=== PATIENT | male | born 1945 | race Caucasian/White ===

== ENCOUNTER 2016-05-18 10:50 | Emergency (ER) | payer OTHER ==
[~2016-05-18] VITALS: Ht 175.3 cm; Wt 106.6 kg
--- NOTE | 2016-05-18 11:29 | PHYS DOC ---
Past Medical History Past Medical History: High Cholesterol, Hypothyroid Additional Past Medical Histor: Pituitary tumor Past Surgical History: No Surgical History Alcohol Use: None Drug Use: None Adult General Chief Complaint Chief Complaint: HYPERTENSION HPI HPI Patient is a 70 year old male who presents with for evaluation of slight head pressure and ringing in his ears over the past few days. He donated blood approximately 2 weeks ago and was noted to have systolic blood pressure in the 170s. He has been checking his blood pressure since that time and has an elevated blood pressures. He has been trying to look for any symptoms of elevated blood pressure, and has started having slight ringing in his ears and slight head pressure. He has not yet seen his primary care doctor for this. He denies headache, vision changes, dizziness, chest pain, dyspnea, cough, leg pain or swelling, orthopnea, fatigue. Review of Systems Review of Systems Constitutional: Denies fever or chills [] Eyes: Denies change in visual acuity, redness, or eye pain [] HENT: Denies nasal congestion or sore throat [] Respiratory: Denies cough or shortness of breath [] Cardiovascular: No additional information not addressed in HPI [] GI: Denies abdominal pain, nausea, vomiting, bloody stools or diarrhea [] : Denies dysuria or hematuria [] Musculoskeletal: Denies back pain or joint pain [] Integument: Denies rash or skin lesions [] Neurologic: Denies headache, focal weakness or sensory changes [] Endocrine: Denies polyuria or polydipsia [] Allergies Allergies Allergies Coded Allergies Type Severity Reaction Last Updated Verified Sulfa (Sulfonamide Antibiotics) Allergy Intermediate 05/18/16 Yes prednisone Adverse Reaction Mild 05/18/16 Yes Physical Exam Physical Exam Constitutional: Well developed, well nourished, no acute distress, non-toxic appearance. [] HENT: Normocephalic, atraumatic, bilateral TMs normal, oropharynx moist, no oral exudates, nose normal. [] Eyes: PERRLA, EOMI, conjunctiva normal, no discharge. [] Neck: Normal range of motion, supple. [] Cardiovascular:Heart rate regular rhythm [] Lungs & Thorax: Bilateral breath sounds clear to auscultation [] Abdomen: Bowel sounds normal, soft, no tenderness. [] Skin: Warm, dry, no erythema, no rash. [] Back: Normal range of motion. [] Extremities: ROM intact, no edema. [] Neurologic: Alert and oriented X 3, normal motor function, normal sensory function, no focal deficits noted, cranial nerves II through XII intact. [] Psychologic: Affect normal, judgement normal, mood normal. [] Current Patient Data Vital Signs Vital Signs Date Time Temp Pulse Resp B/P Pulse Ox O2 Delivery O2 Flow Rate FiO2 05/18/16 11:30 91 225/99 Room Air 05/18/16 10:55 97.9 15 99 97.9 Lab Values Laboratory Tests Test 05/18/16 11:30 Sodium Level 141mmol/L (136-145) Potassium Level 4.2mmol/L (3.5-5.1) Chloride Level 104mmol/L (98-107) Carbon Dioxide Level 27mmol/L (21-32) Anion Gap 10 (6-14) Blood Urea Nitrogen 14mg/dL (8-26) Creatinine 1.0mg/dL (0.7-1.3) Estimated GFR (Cockcroft-Gault) 73.9 Glucose Level 109mg/dL (70-99) H Calcium Level 9.1mg/dL (8.5-10.1) Troponin I Quantitative < 0.017ng/mL (0.000-0.055) Laboratory Tests 05/18/16 11:30 EKG EKG EKG as interpreted by me as normal sinus rhythm, rate 78, no ST-T changes, P-R 164, QTc 536, PVC Radiology/Procedures Radiology/Procedures Chest xray as interpreted by me with no acute cardiopulmonary disease process Course & Med Decision Making Course & Med Decision Making Pertinent Labs and Imaging studies reviewed. (See chart for details) Workup is unremarkable. As he has a well-established recent pattern of hypertension, will start on antihypertensive. Discussed he should follow-up with his primary care doctor closely. Return precautions given. He understands and agrees with plan. Dragon Disclaimer Dragon Disclaimer This electronic medical record was generated, in whole or in part, using a voice recognition dictation system. Departure Departure Impression: Primary Impression: Asymptomatic hypertension Disposition: HOME, SELF-CARE Condition: STABLE Referrals: GRANT BARONE Jr, MD (PCP) Patient Instructions: Hypertension, [id number] Additional Instructions: Start taking lisinopril for high blood pressure. Follow-up with your primary care doctor within one week. Return for any concerns. Scripts Lisinopril 10 Mg Tablet1 Tab PO DAILY #30 TAB Ref 0 Prov:Danae PRADHAN MD 05/18/16 Danae PRADHAN MD May 18, 2016 11:29
--- NOTE | 2016-05-18 11:42 | EKG ---
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 PROLONGED QT Electronically Signed On 05-19-2016 14:12:40 PANEL COVERER by Dominick Perez
[2016-05-18 11:47] LABS: CALCIUM 9.1 mg/dL (8.5-10.1); GFR 73.9; POTASSIUM 4.2 mmol/L (3.5-5.1)
--- NOTE | 2016-05-18 11:50 | RAD ---
Examination: 2 views of the chest History: History of hypertension Comparison: 03/12/2007 Findings: Low lung volumes and technique accentuate heart size and pulmonary vascularity. There is no acute infiltrate or visualized pneumothorax identified. Impression: No acute cardiopulmonary findings.
[2016-05-18] MEDS ORDERED: LISI10TA2 PO (12:11)
[2016-05-18 12:27] VITALS: BP 193/81
== END 2016-05-18 12:40 | disposition home or self-care (01) ==
LOC: ER 10:50
DX: I10 Essential (primary) hypertension (principal); E03.9 Hypothyroidism, unspecified; E78.00 Pure hypercholesterolemia, unspecified; Z88.2 Allergy status to sulfonamides; Z88.8 Allergy status to other drugs, medicaments and biological substances
CPT/HCPCS: 36415; 71020; 80048; 84484; 93005; 99285-25

== ENCOUNTER → 2017-01-28 | Outpatient (CLI) | payer OTHER ==
[~2017-01-28] MED LIST: CABE0.5T PO; CYCL10TA2 PO; HYDR-2762 PO; LEVO50TA5 PO; LISI10TA2 PO; PRAV40TA2 PO
--- NOTE | 2017-01-28 23:23 | PAIN ---
DATE OF SERVICE: 01/28/2017 INITIAL CONSULTATION FOR PAIN CLINIC CHIEF COMPLAINT: Low back and bilateral lower extremity pain. HISTORY OF PRESENT ILLNESS: This is a 71-year-old male who presents with history of pain in the low back since about 08/28/2016. The patient reports this started gradually not a result of any specific injury or accident he is aware of, the pain getting increasingly worse with time. He has had some chiropractic treatment as well as doing some physical therapy on his own at home with stretching and strengthening exercises, which has helped, but only by about 25%. The patient reports that the pain begins in his low back, bilateral lower extremities in the lateral anterior aspect of the thighs, medial thigh, anterior thigh into the medial lower leg, also in the posterior lower leg as well across the low back to a moderate extent, mostly in the legs; however, the patient reports that it is tingling and numb in the legs, especially in the left thigh with sharp pain that is cramping at times, aching, dull and shooting. The patient reports it awakens him from sleep about twice at night. He can usually reposition and get back to sleep; however. It does not affect bowel or bladder control, but does affect his ability to walk. He can only walk for about 10-15 minutes and has to sit down. When he sits down, the pain subsides significantly, but after about 5-10 minutes and then it starts again once he begins walking for the same duration. The patient reports no loss of motor function, but significant fatigability and feels like his legs are becoming numb and tingly when he is walking, which has caused some loss of balance and stumbling, but no overt falls at this time. The patient rates his disability rate from 0-10, 10 being the worst, is 8 with family and home responsibility and sexual behavior, 6 with recreation, 7 with social activity, 5 with self care and 4 with life support activities. The patient did have an MRI scan of the lumbar spine showing moderately severe disk space narrowing at L5-S1 with diffuse disk bulging of both neural foramina, L4-L5 shows severe diffuse posterior disk protrusion extruding into both neural foramina contributing to severe central spinal and bilateral foraminal stenosis, L3-L4 shows moderate diffuse disk bulging in both neural foramina as well. The patient had significant treatments with therapy and chiropractic since October of this year, which is ongoing again with only minimal decrease in pain long-term. PAST MEDICAL HISTORY: Significant for hearing loss, hypertension, gastroesophageal reflux, hyperlipidemia, dizziness, headaches and arthritis. PREVIOUS SURGERY: Include bilateral cataract extraction, vasectomy and also has pituitary over production of prolactin. CURRENT MEDICATIONS: Include lisinopril, pravastatin, levothyroxine, cyclobenzaprine, hydrocodone and cabergoline. FAMILY HISTORY: The patient's family history is significant for no major medical problems or conditions that he is aware of. SOCIAL HISTORY: The patient does not smoke, does not drink alcohol, is and lives with his spouse. He is currently retired and lives locally in [facility]. REVIEW OF SYSTEMS: The patient's review of systems is positive for those items mentioned in the history of present illness. All systems reviewed and otherwise negative. It is complete, full and well documented on the patient's chart. PHYSICAL EXAMINATION: VITAL SIGNS: Today, the patient's blood pressure is 136/84, pulse is 79, respirations 16 and temperature 98.1 degrees Fahrenheit. Height is 5 feet 9 inches and weight is 241 pounds. GENERAL: The patient is awake, alert, oriented, appropriate and very pleasant demeanor. HEENT: Head shows normocephalic and atraumatic. Extraocular movements are intact and symmetrical. Oral cavity: Mucous membranes are moist and pink. Dentition is intact. NECK: Shows anterior throat supple without palpable lymphadenopathy noted. Swallow reflex is symmetrical. CHEST: Shows normal on inspection. Breath sounds are clear to auscultation bilaterally. HEART: Shows S1 and S2 clear. No murmurs are auscultated. ABDOMEN: Obese, soft, nontender and nondistended. No palpable organomegaly is noted. No rebound or guarding demonstrated. MUSCULOSKELETAL: Back shows spine grossly in the midline. Normal appearing thoracic kyphosis and lumbar lordotic curvature. Lumbar paraspinous muscle shows symmetrical on inspection with palpation shows some very mild tenderness in the lower lumbar distribution, but is symmetrical, no evidence of atrophy, hypertrophy, no trigger points, no radiation of pain, no tenderness over the sacrum or sacroiliac regions. The patient shows full rotational motion of the lumbar spine both laterally as well as extension and flexion without difficulty or pain reported. Lower extremities show deep tendon reflexes at 2+ in the patellar, 1+ tendo calcaneus tendons. Motor exam is strong with 5/5 dorsiflexion, extension, quadriceps and hamstring flexion and equal. Peripheral pulses are 1+ posterior tibial and dorsalis pedis pulses. No peripheral edema is noted. No clubbing and no cyanosis. Lower extremities are warm and dry to touch, equal in color and appearance. Straight leg raise is noted to be positive bilaterally at about 40 degrees, decreased with knee flexion. Gaenslen's and Agustín's maneuvers are negative bilaterally. The patient is able to stand, has no difficulty standing on his toes or loss of balance and walking with a slight shuffling gait, appears to favor the left lower extremity slightly more than the right with ambulation, but only moderately so, not using any assistive devices such as canes or walkers to ambulate. SKIN: Shows warm and dry. No peripheral edema. No bruises, lesions, rashes or scars noted. IMPRESSION: 1. This is a 71-year-old male with approximate 5-month history of low back and bilateral lower extremity pain radiating to the lower extremities in a significant radicular fashion following the L4-L5 dermatomal distribution. 2. MRI scan of the lumbar spine as noted. 3. Hypertension. 4. Arthritis. PLAN: Options were discussed with the patient including conservative medical management, physical therapy, interventional techniques and he would like to pursue with interventional techniques. We discussed a lumbar epidural steroid injection using description as well as anatomical models to describe the procedure. The patient would like to wait for preauthorization with his insurance provider. We will have him return to clinic in approximately one week with approval for a lumbar epidural steroid injection at that time. MITESH MAIER MD DR: EDWARD/vijay JOB#: [id number] / [id number]
== END | disposition home or self-care (01) ==
LOC: PNCL 08:03
PROVIDERS: ATTEND Anesthesiology
DX: M48.062 Spinal stenosis, lumbar region with neurogenic claudication (principal); M46.86 Other specified inflammatory spondylopathies, lumbar region; I10 Essential (primary) hypertension; K21.9 Gastro-esophageal reflux disease without esophagitis; E78.5 Hyperlipidemia, unspecified
CPT/HCPCS: G0463

== ENCOUNTER → 2017-02-02 | Outpatient (CLI) | payer OTHER ==
[~2017-02-02] MED LIST changes: +IOHEXOL 180 MG/ML 10 ML VIAL. ONE; +methylPREDNISolone ACETATE 40 MG/ML VIAL. ONE; +methylPREDNISolone ACETATE 80 MG/ML VIAL. ONE
--- NOTE | 2017-02-02 10:22 | PN ---
DATE: 02/02/2017 PROGRESS NOTE FOR PAIN CLINIC DIAGNOSES: Lumbar radiculopathy with lumbar spinal stenosis and lumbar herniated disk. HISTORY OF PRESENT ILLNESS: The patient is a 71-year-old male who returns for followup status post initial evaluation last week with preauthorization for epidural steroid injection today. He is still with significant pain noticed in the low back and bilateral lower extremities, mostly in the posterior gluteus, posterior thigh and lateral thigh into the lower legs bilaterally. The patient reports it a 10 on a scale 10, it is worse at 8 on average and a 7 on a scale of 10 at least; it is 7 today. The patient with aching, sharp, cramping, shooting pain in the low back and bilateral lower extremities as noted. The patient reports no new motor or sensory deficits, no new bowel or bladder incontinence or other complaints. Worse with walking, standing or changing positions and better with sitting or lying down. The patient reports it has been waking him from sleep, but only occasionally; he usually sleeps about 8 hours a night. If he lies on his left side, though, it can become more painful, cramping and aching sensation and will awaken him. The patient is able to reposition and get back to sleep most times. PHYSICAL EXAMINATION: VITAL SIGNS: Today, the patient's blood pressure is 158/75, pulse 88, respirations are 18 and temperature is 97.5 degrees Fahrenheit. Height is 5 feet 9 inches, weight is 240 pounds. GENERAL: The patient is awake, alert, oriented, appropriate, very pleasant demeanor. HEENT: Head shows normocephalic, atraumatic. Extraocular movements intact and symmetrical. Oral cavity, mucous membranes moist and pink. Dentition is intact. NECK: Shows anterior throat supple, without palpable lymphadenopathy noted. Swallow reflex symmetrical. CHEST: Shows normal with inspection. Breath sounds clear to auscultation bilaterally. HEART: Shows S1, S2 clear. No murmurs auscultated. ABDOMEN: Obese, soft, nontender and nondistended. No palpable organomegaly is noted. No rebound or guarding demonstrated. BACK: Shows spine grossly in the midline. Slight exaggeration of thoracic kyphosis. Normal lordotic lumbar curvature. Lumbar paraspinous muscle shows symmetrical on inspection. With palpation, it shows some moderate tenderness with palpation, but only diffusely bilaterally. SKIN: Shows some mottled discoloration from heating pad use, but no lesions, rashes, sores or scars. LOWER EXTREMITIES: Show deep tendon reflexes 2+ in the patellar, 1+ tendo calcaneus tendons. Motor exam is strong with 5/5 dorsiflexion, extension, quadriceps and hamstring flexion and symmetrical. Pulses are 1+ posterior tibial. No peripheral edema is noted. Options were discussed with the patient. The patient's old chart was reviewed as was his current medication regimen updated. Current review of systems updated today as well. We will proceed with a lumbar epidural steroid injection today with fluoroscopic guidance. Risks were again discussed including, but not limited to bleeding, infection, possibility of epidural hematoma, subsequent neurologic compromise, dural puncture, headaches, spinal cord and/or nerve damage, side effects of steroid medication and poor results regarding pain control. The patient understands and wished to proceed. The patient will return to the clinic in approximately 2 weeks for followup. He was counseled on return appointment, activity level and side effects to be aware of. DIAGNOSES: Lumbar radiculopathy with lumbar spinal stenosis and lumbar herniated disk. PROCEDURE: Lumbar epidural steroid injection in translaminar approach at the L5-S1 level using C-arm fluoroscopic guidance under sterile prep and drape using local anesthetic. MEDICATIONS INJECTED: A total of 120 mg Depo-Medrol plus 10 mL preservative-free normal saline and 2 mL of Isovue for contrast. CONDITION AT DISCHARGE: Stable. The patient tolerated the procedure well, had no complications. MITESH MAIER MD DR: EDWARD/vijay JOB#: [id number] / [id number]
== END | disposition home or self-care (01) ==
LOC: PNCL 08:03
PROVIDERS: ATTEND Anesthesiology
DX: M51.16 Intervertebral disc disorders with radiculopathy, lumbar region (principal); M48.061 Spinal stenosis, lumbar region without neurogenic claudication; Z88.8 Allergy status to other drugs, medicaments and biological substances; Z88.2 Allergy status to sulfonamides; I10 Essential (primary) hypertension; E03.9 Hypothyroidism, unspecified; E78.00 Pure hypercholesterolemia, unspecified
CPT/HCPCS: 62323; J1030; J1040

== ENCOUNTER → 2017-02-17 | Outpatient (CLI) | payer OTHER ==
[~2017-02-17] MED LIST changes: -IOHEXOL 180 MG/ML 10 ML VIAL. ONE; -methylPREDNISolone ACETATE 40 MG/ML VIAL. ONE; -methylPREDNISolone ACETATE 80 MG/ML VIAL. ONE
--- NOTE | 2017-02-17 09:33 | PAIN ---
DATE OF SERVICE: 02/17/2017 DIAGNOSES: Lumbar radiculopathy with lumbar herniated disk, lumbar spinal stenosis. HISTORY OF PRESENT ILLNESS: The patient is a 71-year-old male who returns for followup status post lumbar epidural steroid injection x 1 on 02/06/2017. The patient reports he did very well, about a 100% improvement after the first week, second week it was about a 75% improvement. The patient reports he has still about 75% improvement or so in the low back and bilateral lower extremities. The patient reports still significant pain across the low back, worse with standing, walking, changing positions, much better with sitting or lying down. He has been increasing his activity with greater ease and comfort, especially the first 2 weeks. This last few days it has been more noticeable with pain in the low back and bilateral lower extremities, radiating to posterior gluteus, posterior thighs, lateral thighs and anterior thigh and into the posterior calf. It is a cramping, aching, off and on now, it is not constant as it was before. The patient reports the pain is a 4 on a scale of 10 at its worst, 3 on average and 1 at its least, is a 3 today. The patient reports no new motor or sensory deficits, no new bowel or bladder changes. Again, sleeping well at night about 6-8 hours, does not awaken him from sleep. It is much better with sitting or lying down. When he goes to change positions, however, is when he notices the pain most significantly. The patient reports otherwise doing well. He is very pleased with the progress thus far. He continues to have good relief, but again reports the pain returning slowly in the L5-S1 dermatomal distribution in the bilateral lower extremities. PHYSICAL EXAMINATION: VITAL SIGNS: Blood pressure 138/79, pulse 77, respirations 18, temperature is 97.9 degrees Fahrenheit, height 5 feet 9 inches, weight is 240 pounds. GENERAL: The patient is awake, alert, oriented, appropriate, very pleasant demeanor. HEENT: Head shows normocephalic, atraumatic. Extraocular movements are intact and symmetrical. Oral cavity: Mucous membranes moist and pink. Dentition is intact. NECK: Shows anterior throat is supple without palpable lymphadenopathy noted. Swallow reflexes symmetrical. CHEST: Normal on inspection. Breath sounds are clear to auscultation bilaterally. HEART: S1, S2 clear. No murmurs auscultated. ABDOMEN: Soft, nontender, nondistended, no palpable organomegaly is noted. No rebound or guarding demonstrated. BACK: Shows spine grossly in the midline. Normal appearing thoracic kyphosis and some slight flattening of the lumbar lordotic curvature. No previous bruises, lesions, rash, or scars noted. Lumbar paraspinous musculature is symmetrical on inspection, on palpation shows some moderate tenderness bilaterally, but only diffusely in the lumbar distribution without trigger points, without radiation, good rotational motion in the lumbar distribution both laterally as well as extension, flexion without significant difficulty. EXTREMITIES: Lower extremities show deep tendon reflexes 2+ in patellar, 1+ tendo calcaneus tendon, equal. Motor examination is strong with 5/5 dorsiflexion and extension, quadriceps and hamstring flexion. Peripheral pulses are 1+ posterior tibial. No peripheral edema is noted. The patient still has slight positive straight leg raise at about 45 degrees bilaterally, but it is decreased and relieved with knee flexion. Gaenslen's and Agustín maneuvers are negative bilaterally as well. Options were discussed with the patient. The patient's old chart was reviewed as well as current medication regimen updated. Current review of systems updated today as well. We will proceed with a preauthorization for second lumbar epidural steroid injection. He did very well with the first injection, the pain returning now after about 2-1/2 weeks of pain in the bilateral lower extremities in a L5-S1 dermatomal distribution. The patient will return to clinic after preauthorization is made. He is encouraged to maintain activity, stretching and strengthening exercises he is doing and walking daily as tolerated. MITESH MAIER MD DR: EDWARD/vijay JOB#: [id number] / [id number]
== END | disposition home or self-care (01) ==
LOC: PNCL 08:14
PROVIDERS: ATTEND Anesthesiology
DX: M51.16 Intervertebral disc disorders with radiculopathy, lumbar region (principal); M48.061 Spinal stenosis, lumbar region without neurogenic claudication
CPT/HCPCS: G0463

== ENCOUNTER → 2017-03-05 | Outpatient (CLI) | payer OTHER ==
[~2017-03-05] MED LIST changes: +IOHEXOL 180 MG/ML 10 ML VIAL. ONE; +methylPREDNISolone ACETATE 40 MG/ML VIAL. ONE; +methylPREDNISolone ACETATE 80 MG/ML VIAL. ONE
--- NOTE | 2017-03-06 03:15 | PAIN ---
DATE OF SERVICE: 03/05/2017 PROGRESS NOTE FOR PAIN CLINIC DIAGNOSES: Lumbar radiculopathy with lumbar herniated disk and lumbar spinal stenosis. HISTORY OF PRESENT ILLNESS: The patient is a 71-year-old male who returns for followup status post lumbar epidural steroid injection x 1 with near 100% improvement for the first week and about 75% improvement after that. The patient reports it is still about 75% improved in his low back and bilateral lower extremities. The patient reports the pain is beginning to become more noticeable day by day, but still doing much better, aching, sharp, cramping pain, rates as a 4 on a scale of 10 at its worst, at its least and on average and is a 4 today. The patient reports no new motor or sensory deficits, no new bowel or bladder incontinence or other complaints. He is sleeping about 7-9 hours at night. It does not awaken him from sleep from his low back pain. He has some shoulder issues, which wake him up, but otherwise he does well sitting on his low back. He had been increasing his activities with greater ease and comfort. He is very pleased with his progress thus far. The patient reports no new changes or deficits. PHYSICAL EXAMINATION: VITAL SIGNS: The patient's blood pressure 166/87, pulse is 83, respirations 16, temperature 98.0 degrees Fahrenheit and weight is 242 pounds. GENERAL: The patient is awake, alert, oriented, appropriate, very pleasant demeanor. HEENT: Head shows normocephalic and atraumatic. Extraocular movements are intact, symmetrical. Oral cavity: Mucous membranes are moist and pink. Dentition is intact. NECK: Shows anterior throat is supple without palpable lymphadenopathy noted. Swallow reflex symmetrical. CHEST: Shows normal with inspection. Breath sounds are clear to auscultation bilaterally. HEART: Shows S1 and S2 clear. No murmurs auscultated. ABDOMEN: Soft, nontender, nondistended and obese. No palpable organomegaly is noted. No rebound or guarding demonstrated. MUSCULOSKELETAL: Back shows spine grossly in the midline. Normal appearing thoracic kyphosis, some minor flattening of the lumbar lordotic curvature. Lumbar paraspinous muscle shows symmetrical with inspection on palpation shows some moderate tenderness, but only diffusely without radiation. No tenderness over the sacrum or sacroiliac regions. The patient has full rotational motion of lumbar spine without difficulty or tenderness. Lower extremities show deep tendon reflexes at 2+ in the patellar, 1+ tendo calcaneus tendons. Motor exam is strong with 5/5 dorsiflexion, extension, quadriceps and hamstring flexion equal. Peripheral pulses are 1+ posterior tibial. No peripheral edema is noted bilaterally. Options were discussed with the patient. The patient's old chart was reviewed as was his current medication regimen updated. Current review of systems updated today as well. We will proceed with a second in a series of lumbar epidural steroid injection with fluoroscopic guidance. Risks were again discussed including, but not limited to bleeding, infection, possibility of epidural hematoma, subsequent neurologic compromise, dural puncture, headaches, spinal cord and/or nerve damage, side effects of steroid medication and poor results regarding pain control. The patient understands and wished to proceed. The patient will return to the clinic in approximately two weeks for followup, was counseled on return appointment, activity level and side effects to be aware of. DIAGNOSIS: Lumbar radiculopathy with lumbar herniated disk and lumbar spinal stenosis. PROCEDURE: Lumbar epidural steroid injection, translaminar approach at the L5-S1 level using C-arm fluoroscopic guidance under sterile prep and drape using local anesthetic. Medication injected a total of 120 mg of Depo-Medrol plus 10 mL of preservative free normal saline and 2 mL Isovue for contrast. CONDITION AT DISCHARGE: Stable. The patient tolerated the procedure well and had no complications. MITESH MAIER MD DR: EDWARD/vijay JOB#: [id number] / [id number]
== END | disposition home or self-care (01) ==
LOC: PNCL 13:42
PROVIDERS: ATTEND Anesthesiology
DX: M51.16 Intervertebral disc disorders with radiculopathy, lumbar region (principal); M48.061 Spinal stenosis, lumbar region without neurogenic claudication; Z88.1 Allergy status to other antibiotic agents; Z88.2 Allergy status to sulfonamides
CPT/HCPCS: 62323; J1030; J1040

== ENCOUNTER 2018-02-02 00:11 | Emergency (ER) | payer OTHER ==
[~2018-02-02] VITALS: Ht 172.7 cm; Wt 108.9 kg
[~2018-02-02 00:11] MED LIST changes: -IOHEXOL 180 MG/ML 10 ML VIAL. ONE; -methylPREDNISolone ACETATE 40 MG/ML VIAL. ONE; -methylPREDNISolone ACETATE 80 MG/ML VIAL. ONE
--- NOTE | 2018-02-02 00:31 | PHYS DOC ---
Past Medical History Past Medical History: High Cholesterol, Hypothyroid Additional Past Medical Histor: Pituitary tumor Past Surgical History: No Surgical History Alcohol Use: None Drug Use: None Adult General Chief Complaint Chief Complaint: LACERATION/AVULSION HPI HPI Patient is a 72 year old male who presents with right thumb laceration, patient accidentally cut himself with a vegetable slicer at 3 pm and has not been able to stop the bleeding. He is on aspirin 81mg. He is right handed Review of Systems Review of Systems Constitutional: Denies fever or chills [] Musculoskeletal: Denies back pain or joint pain [] Integument: Reports right thumb laceration Neurologic: Denies headache, focal weakness or sensory changes [] All other systems were reviewed and found to be within normal limits, except as documented in this note. Current Medications Current Medications Current Medications Medications (Trade) Dose Ordered Sig/Barak Start Time Stop Time Status Last Admin Dose Admin Diphtheria/ Tetanus/Acell Pertussis (Boostrix) 0.5 ml ONCE ONCE 02/02/18 00:45 02/02/18 00:46 DC 02/02/18 00:52 0.5 ML Gelatin (Gelfoam Size 100) 1 each 1X ONCE 02/02/18 01:00 02/02/18 01:01 DC 02/02/18 00:53 1 EACH Lidocaine/ Epinephrine (LIDOCAINE 1%-EPI 1:100,000 Multi-Dose) 20 ml 1X ONCE 02/02/18 00:45 02/02/18 00:46 DC Allergies Allergies Allergies Coded Allergies Type Severity Reaction Last Updated Verified Sulfa (Sulfonamide Antibiotics) Allergy Intermediate 05/18/16 Yes prednisone Adverse Reaction Mild 05/18/16 Yes Physical Exam Physical Exam Constitutional: Well developed, well nourished, no acute distress, non-toxic appearance. [] Skin: Warm, dry, right lateral thumb distal end with a skin avulsion type laceration approximately 3 x 2 cm. There is mild amount of bleeding from the laceration site. Full range of motion to the right thumb including flexion and extension at all the joints. Neurovascular exam is intact including cap refill of 2 seconds. Adequate radial sensation to the right thumb. +2 right radial pulse. +2 right radial pulse. Back: No tenderness, no CVA tenderness. [] Extremities: No tenderness, no cyanosis, no clubbing, ROM intact, no edema. [] Neurologic: Alert and oriented X 3, normal motor function, normal sensory function, no focal deficits noted. [] Psychologic: Affect normal, judgement normal, mood normal. [] Current Patient Data Vital Signs Vital Signs Date Time Temp Pulse Resp B/P (MAP) Pulse Ox O2 Delivery O2 Flow Rate FiO2 02/02/18 00:40 99.3 87 18 178/86 (116) 95 Room Air 99.3 EKG EKG [] Radiology/Procedures Radiology/Procedures [] Course & Med Decision Making Course & Med Decision Making Pertinent Labs and Imaging studies reviewed. (See chart for details) This is a 72-year-old male patient presenting to the ED today with right thumb skin avulsion. Tetanus was updated. Right thumb x-rays interpreted by Dr. Henriquez was negative for any acute findings. Finger was cleaned with 100 ML of normal saline. Gelfoam and pressure dressing was used to stop the bleeding. Patient was instructed to ice and elevate the extremity. Discharged on cephalexin, Neosporin recommended after 24 hours. Follow-up with PCP in one week. Provided return precautions. dorothy: i saw and eval'd this patient. bleeding controlled with gelfoam and presssure dressing Dragon Disclaimer Dragon Disclaimer This electronic medical record was generated, in whole or in part, using a voice recognition dictation system. Departure Departure Impression: Primary Impression: Avulsion of skin of finger Disposition: 01 HOME, SELF-CARE Condition: STABLE Referrals: GRANT BARONE Jr, MD (PCP) Follow-up in 1-2 weeks Patient Instructions: Deep Skin Avulsion Additional Instructions: You were evaluated in the emergency room for skin avulsion to the right thumb. Ice elevate the extremity. Keep the dressing on for 24 hours. If bleeding is not controlled come back to the ED. Monitor the area for signs of infection including increased redness warmth or yellow drainage from the area and return to the ED if they occur or see your doctor. Take the prescribed antibiotics until completed. Apply Neosporin to the area twice a day starting on . Follow-up with your doctor in 1-2 weeks. Scripts Cephalexin (CEPHALEXIN) 500 Mg Tablet 1 TAB PO QID, #40 TAB Prov: MICKIE HUMPHREY [employer] UP MECHANIC 02/02/18 Problem Qualifiers Primary Impression: Avulsion of skin of finger Encounter type: initial encounter Qualified Codes: S61.209A - Unspecified open wound of unspecified finger without damage to nail, initial encounter MICKIE HUMPHREY APRN Feb 02, 2018 00:31 FLAVIO CLARK MD Feb 02, 2018 01:44
[2018-02-02] MEDS ORDERED: GELATIN SPONGE SIZE 100. ONE (00:37)
[2018-02-02 00:40] VITALS: BP 178/86
[2018-02-02] MEDS ORDERED: LIDOCAINE 1%/EPI 1:100,000 20 ML VIAL. INJ ONE (00:45)
[2018-02-02] MEDS ORDERED: DIPHTH,PERTUSS(ACELL),TET TOX 0.5 ML DISP.SYRIN. VAX IM ONE (00:45)
[2018-02-02] MEDS ORDERED: CEPH500T PO (00:54)
--- NOTE | 2018-02-02 00:58 | RAD ---
Right fingers radiograph 02/02/2018 12:21 AM INDICATION: Right thumb skin avulsion after caught with G slicer COMPARISON: None available. TECHNIQUE: 3 views of the first digit of the right hand are provided. FINDINGS: There is no acute fracture or dislocation. Bone mineralization is within normal limits. Joint spaces are maintained. Soft tissue swelling with suspected soft tissue defect noted. No osseous erosion. IMPRESSION: No acute fracture or dislocation. Electronically signed by: Beatris Winston MD (02/02/2018 12:54 AM) [facility]
[2018-02-02] MEDS ORDERED: GELATIN SPONGE SIZE 100. TP ONE (01:00)
== END 2018-02-02 01:15 | disposition home or self-care (01) ==
LOC: ER 00:11
DX: S61.011A Laceration without foreign body of right thumb without damage to nail, initial encounter (principal); E78.00 Pure hypercholesterolemia, unspecified; E03.9 Hypothyroidism, unspecified; Z88.2 Allergy status to sulfonamides; Z88.8 Allergy status to other drugs, medicaments and biological substances; W27.4XXA Contact with kitchen utensil, initial encounter; Y93.G1 Activity, food preparation and clean up; Y92.090 Kitchen in other non-institutional residence as the place of occurrence of the external cause; Y99.8 Other external cause status
CPT/HCPCS: 73140; 90471; 90715; 99283-25